=== PATIENT | female | born 1940 | race Caucasian/White ===

== ENCOUNTER 2019-02-19 13:50 | Inpatient (IN) | payer MEDICARE, OTHER ==
[~2019-02-19] VITALS: Ht 157.5 cm; Wt 79.1 kg
[2019-02-19 15:33] LABS: BASO % 0.3 % (0.0-1.0); EOS # 0.2 10^3/uL (0.0-0.5); HEMATOCRIT 33.5 % (36.0-47.0); HEMOGLOBIN 10.7 g/dl (12.0-15.5); LYMPH # 1.3 10^3/uL (1.5-5.0); LYMPH % 17.7 % (24.0-44.0); MEAN CORPUSCULAR HEMOGLOBIN 30.9 pg (27.0-33.0); MEAN CORPUSCULAR HGB CONC 31.9 g/dl (32.0-36.5); MEAN CORPUSCULAR VOLUME 96.8 fl (80.0-96.0); MONO # 0.6 10^3/uL (0.0-0.8); MONO % 7.3 % (0.0-5.0); NEUTROPHILS # 5.4 10^3/uL (1.5-8.5); NEUTROPHILS % 72.3 % (36.0-66.0); PLATELET COUNT, AUTOMATED 257 10^3/uL (150-450); RED BLOOD COUNT 3.46 10^6/uL (4.00-5.40); WHITE BLOOD COUNT 7.5 10^3/uL (4.0-10.0)
[2019-02-19 15:49] LABS: BLOOD UREA NITROGEN 43 MG/DL (7-18); C REACTIVE PROTEIN QUANTITATIV 2.57 MG/DL (0.00-0.30); CALCIUM LEVEL 9.1 MG/DL (8.8-10.2); CARBON DIOXIDE LEVEL 26 MEQ/L (21-32); CHLORIDE LEVEL 105 MEQ/L (98-107); CREATININE FOR GFR 1.93 MG/DL (0.55-1.30); GLOMERULAR FILTRATION RATE 26.6 (>32); GLUCOSE, FASTING 309 MG/DL (70-100); POTASSIUM SERUM 4.3 MEQ/L (3.5-5.1); SODIUM LEVEL 140 MEQ/L (136-145)
[2019-02-19 15:53] LABS: ERYTHROCYTE SEDIMENTATION RATE 71 mm/hr (0-30)
[2019-02-19 16:49] LABS: CPK CREATINE PHOSPHOKINASE 141 U/L (26-192); MB/CK RELATIVE INDEX 1.42 (< OR =4); NT-PRO BNP 456 PG/ML (<450); TROPONIN I < 0.02 NG/ML (< 0.10)
--- NOTE | 2019-02-19 17:00 | REP ---
Duplex extremity venous ultrasound: Right lower extremity rupali History: Right lower extremity edema. Rule out DVT. Findings: The deep veins are anechoic and fully compressible from the groin to the popliteal fossa in the right lower extremity. Color flow imaging is homogeneous. Spectral Doppler interrogation demonstrates intact respiratory variation in flow and normal manual augmentation of flow. There is no evidence of deep vein thrombosis. Impression: Negative right lower extremity duplex venous ultrasound. No evidence of deep vein thrombosis. Electronically Signed by Francisco Torres MD 02/19/2019 04:52 P
[2019-02-19] MEDS ORDERED: OCUVTAB4 PO (17:33)
[2019-02-19] MEDS ORDERED: ATEN50TA2 PO (17:33)
[2019-02-19] MEDS ORDERED: AMLO10TA5 PO (17:33)
[2019-02-19] MEDS ORDERED: ATOR80TA59 PO (17:33)
[2019-02-19] MEDS ORDERED: NOVOINJ3 SQ (17:33)
[2019-02-19] MEDS ORDERED: TRES1INJ2 SQ (17:33)
[2019-02-19] MEDS ORDERED: ACET-907 PO (17:33)
[2019-02-19] MEDS ORDERED: OMEP1CAP73 PO (17:33)
[2019-02-19] MEDS ORDERED: AUGMENTIN 875 MG TAB PO ONE ×2 (17:45→20:00)
--- NOTE | 2019-02-19 19:22 | HPEPDOC ---
[facility] Medical History & Physical Date of Admission Feb 19, 2019 Date of Service: Feb 19, 2019 Primary Care Physician: Scott Ramesh Attending Physician: RYAN FELIZ MD History and Physical TIME OF SERVICE: 7:20 PM CHIEF COMPLAINT: Weakness HISTORY OF PRESENT ILLNESS: The majority of the history is obtained from the patient's daughter, the patient didn't have much to contribute to the HPI. This is an 78-year-old female who presents with complaints of weakness for 3 days after she was bitten by a cat on her right lower forearm. As a result of the weakness her daughter has had to assist her mother with walking and dressing. The patient denies having fevers, chills, nausea, vomiting, or abdominal pain. The patient lives on her own in [place], and at baseline walks with a walker. The patient's daughter has also noticed that her mother's speech is slower & it apepears to take her more effort for her to speak. The patient's daughter is also concerned that her mother developed blisters on her right foot after being locked outside on with only socks on her feet. The patient doesn't take her medications consistently. REVIEW OF SYSTEMS: 12 point review of systems negative except as listed in HPI PAST MEDICAL/ SURGICAL HISTORY: CVA with residual memory deficit ? IDDM, Dyslipidemia. Chronic hypertension PAD Status post right leg vascular procedure, possibly femoropopliteal bypass Bilateral cataract surgery. Status post cholecystectomy SOCIAL HISTORY: She doesn't smoke FAMILY HISTORY: Denied knowledge of family history of diabetes, or any artery disease, or lung problems ALLERGIES: Please see below. HOME MEDICATIONS: Please see below. PHYSICAL EXAMINATION: VITAL SIGNS: Please see below. GEN: well nourished / well developed/ NAD INTEGUMENT: not flushed/ appears pale / she has read small round lesions on the right lower forearm that are not draining pus / xerosis affecting skin on right foot, there is a dark red flat lesion on the forefoot HEENT: normocephalic / atraumatic / lips acyanotic /mucus membranes moist and pink CVS: RRR/ NMRG/ radial and dorsalis pedis pulses difficult to palpate / right lower extremity more swollen than left LUNGS: able to speak full sentences without stopping to take a breath / no cou ghing / lungs are clear to auscultation bilaterally on room air ABDOMEN: tympanic on percussion, soft & not tender with palpation MSK/EXTREMITIES: range of motion intact in all 4 extremities NEURO: CN 2-12 are grossly intact / speech is not dysarthric / strength 5 out of 5 in all extremities except for the right hip flexor strength is +4/5 PSYCH: alert and oriented to person place / able to understand and follow all commands LABORATORY DATA: See below. IMAGING: Right lower extremity duplex " Impression: Negative right lower extremity duplex venous ultrasound. No evidence of deep vein thrombosis." Chest x-ray " Impression: Mild cardiomegaly. Otherwise no acute disease." CT head " IMPRESSION: 1. There is parenchymal volume loss. White matter changes are demonstrated in the subcortical, centrum semiovale and periventricular white matter consistent with age related small vessel white matter angiopathic gliosis. 2. The degree of ventricular dilatation is normal for age and/or degree of atrophy present. 3. No acute findings. MICROBIOLOGY: Please see below. ASSESSMENT: Ms. Franks is an 78-year-old with past medical history of IDDM, Chronic hypertension,dyslipidemia, CVA, impaired memory, and PAD who will be admitted for evaluation of weakness & treatment of a right lower arm cat bite. PLAN: 1. Weakness It is unclear what the cause of her acute weakness is. At her baseline she can walk with a walker but more recently she is having difficulty using the walker. CT of the head is unremarkable Plan: PT eval/fall precautions / if her weakness doesn't improve the day time t eam may consider MRI & PFS consult for placement 2.Expressive Aphasia ? According to the patient's daughter. She is also having difficulty speaking. Plan: SPL eval to test her speech & determine if she needs out pt speech therapy 3. Cat bite at right lower arm She does not have SIRS criteria. Arm is not excessively swollen Plan: Admit to medical floor/monitor vitals/oral Augmentin 4. Hx of CVA with residual memory deficit ? / Dyslipidemia According to the patient's daughter. The patient lives on her own and [place], She provided a vague answer when I asked her if the patient is going to move in with her, whether there will require home RN and home health aide or or whether her mother will require placement Plan: Continue atorvastatin / the daytime team can follow-up with the patient and her daughter during the day prior to placing a PFS consult 5. Elevated BNP Possibly due to CHF ? Clinically, the patient is euvolemic She also has congestion on the chest x-ray. The troponin is unremarkable. EKG shows normal sinus rhythm with a heart rate of 71 Plan: Monitor intake and output along with daily weights/Follow-up Echo 6. GRACE versus CKD It's unclear what her baseline renal function is. Plan: f/u ulytes for FENa or FEUrea, renal US / will not give IV fluids for now until we are sure it's GRACE because she also has elevated BNP and congestion on chest x-ray 7. Uncontrolled IDDM Plan: diabetic diet / f/u accuchecks & A1C / hypoglycemia protocol / sliding scale insulin / aspart 4 units before meals, at bedtime with Tresiba 16 units daily 8. Right lower extremity blisters. She is diabetic and has not been taking her insulin consistently Plan: Podiatry consult 9. Macrocytic anemia Plan: Follow-up reticulocyte count, iron studies, B12 and folate 10. Chronic hypertension Plan: Continue amlodipine & atenolol 11. PAD Status post right leg vascular procedure, possibly femoropopliteal bypass Plan: Continue with statin/ she is not on a blood thinner or cilostazol 12. Obesity Her BMI is 30.2. This complicates care. She has coexisting diabetes Plan: can f/u w PCP for [employer] questionnaire & photo graphics librarian consult DVT prophylaxis with Lovenox. Discharge disposition pending family's decision, the patient will need more than 2 midnight stay Vital Signs Vital Signs Date Time Temp Pulse Resp B/P (MAP) Pulse Ox O2 Delivery O2 Flow Rate FiO2 02/19/19 17:35 71 142/84 (103) 74 139/67 (91) 80 169/72 (104) 02/19/19 13:51 96.7 18 97 Room Air Laboratory Data Labs 24H Laboratory Tests 2 02/19/19 15:18: Immature Granulocyte % (Auto) 0.4, Neutrophils (%) (Auto) 72.3H, Lymphocytes (%) (Auto) 17.7L, Monocytes (%) (Auto) 7.3H, Eosinophils (%) (Auto) 2.0, Basophils (%) (Auto) 0.3, Neutrophils # (Auto) 5.4, Lymphocytes # (Auto) 1.3L, Monocytes # (Auto) 0.6, Eosinophils # (Auto) 0.2, Basophils # (Auto) 0.0, Nucleated Red Blood Cells % (auto) 0.0, Erythrocyte Sedimentation Rate 71H, Anion Gap 9, Glomerular Filtration Rate 26.6L, Lactic Acid Level 1.5, Calcium Level 9.1, Total Creatine Kinase 141, Creatine Kinase MB 2.0, Creatine Kinase MB Relative Index 1.42, Troponin I < 0.02, C-Reactive Protein, Quantitative 2.57H, NT-Pro-B- Type Natriuretic Peptide 456H, Thyroid Stimulating Hormone (TSH) 2.170 02/19/19 17:34: Urine Color YELLOW, Urine Appearance HAZY, Urine pH 5.0, Urine Specific [place] 1.023, Urine Protein 1+H, Urine Glucose (UA) NEGATIVE, Urine Ketones NEGATIVE, Urine Blood NEGATIVE, Urine Nitrite NEGATIVE, Urine Bilirubin NEGATIVE, Urine Urobilinogen 0.2, Urine Leukocyte Esterase TRACEH, Urine WBC (Auto) 8H, Urine RBC (Auto) 2, Urine Hyaline Casts (Auto) 4, Urine Bacteria (Auto) 1+H, Urine Squamous Epithelial Cells 3, Urine Transitional Epithelial Cells <1, Urine Mucus (Auto) SMALL, Urine Sperm (Auto) CBC/BMP Laboratory Tests 02/19/19 15:18 Microbiology Microbiology 02/19/19 Blood Culture, Received Pending 02/19/19 Urine Culture, Received Pending 02/19/19 Blood Culture, Received Pending Home Medications Scheduled Amlodipine Besylate (Amlodipine Besylate) 10 Mg Tablet, 10 MG PO DAILY PATIENT HAS NOT BEEN TAKING Atenolol (Atenolol) 50 Mg Tablet, 25 MG PO DAILY PATIENT HAS NOT BEEN TAKING Atorvastatin Calcium (Atorvastatin Calcium) 80 Mg Tablet, 40 MG PO DAILY PATIENT HAS NOT BEEN TAKING Insulin Aspart (Novolog Flexpen) 100 Unit/1 Ml Insuln.pen, 4 UNITS SQ ACHS Insulin Degludec (Tresiba Flextouch U-100) 100 Unit/1 Ml Insuln.pen, 16 UNITS SQ DAILY Omeprazole (Omeprazole) 20 Mg Capsule.dr, 20 MG PO DAILY Vit A/Vit C/Vit E/Zinc/Copper (Preservision Areds Tablet) 1 Each Tablet, 1 TAB PO BID Scheduled PRN Acetaminophen (Tylenol) 325 Mg Tablet, 650 MG PO BID PRN for PAIN Allergies Coded Allergies: terfenadine (Verified Allergy, Unknown, 02/19/19) A-FIB/CHADSVASC A-FIB History Current/History of A-Fib/PAF?: No Current PO Anticoag Therapy: No RYAN FELIZ MD Feb 19, 2019 19:22
[2019-02-19] MEDS ORDERED: HumuLIN R (REGULAR) INSULIN (NovoLIN R) **100U/ML** PER UNIT IV ONE (19:30)
--- NOTE | 2019-02-19 19:43 | REP ---
Chest x-ray: Two views. History: Lower extremity edema. No comparison study. Findings: The lungs are well inflated and free of infiltrate. Pleural angles are sharp. The heart is mildly enlarged. Pulmonary vasculature is not increased. No infiltrate is seen. The aorta is tortuous and slightly calcific. There is an old healed rib fracture on the right and there are degenerative changes in the thoracic spine. There are surgical clips in the upper abdomen. Impression: Mild cardiomegaly. Otherwise no acute disease. Electronically Signed by Francisco Torres MD 02/19/2019 07:36 P
[2019-02-19] MEDS ORDERED: MOM 30ML SUSPENSION UDC PO PRN (19:45)
[2019-02-19] MEDS ORDERED: MAALOX 30 ML SUSP *UDC PO PRN (19:45)
[2019-02-19] MEDS ORDERED: DEXTROSE 50% 50 ML SYRINGE IV PRN (19:45)
[2019-02-19] MEDS ORDERED: GLUCOSE 4 GM CHEW TABLET PO PRN (19:45)
[2019-02-19] MEDS ORDERED: GLUCAGON FOR INJ 1 MG VIAL (J1610) SC PRN (19:45)
--- NOTE | 2019-02-19 20:19 | REPVR ---
PROCEDURE INFORMATION: Exam: CT Head Without Contrast Exam date and time: 02/19/2019 7:44 PM Age: 78 years old Clinical history: Weakness, extremity; Right; Additional info: Hospitalist request TECHNIQUE: Imaging protocol: Computed tomography of the head without contrast. Radiation optimization: All CT scans at this facility use at least one of these dose optimization techniques: automated exposure control; mA and/or kV adjustment per patient size (includes targeted exams where dose is matched to clinical indication); or iterative reconstruction. COMPARISON: No relevant prior studies available. FINDINGS: Brain: There is parenchymal volume loss. White matter changes are demonstrated in the subcortical, centrum semiovale and periventricular white matter consistent with age related small vessel white matter angiopathic gliosis. Cerebellar atrophy. Ventricles: The degree of ventricular dilatation is normal for age and/or degree of atrophy present. Bones/joints: Unremarkable. No acute fracture. Sinuses: Visualized sinuses are unremarkable. No fluid levels. Mastoid air cells: Visualized mastoid air cells are well aerated. Soft tissues: Unremarkable. IMPRESSION: 1. There is parenchymal volume loss. White matter changes are demonstrated in the subcortical, centrum semiovale and periventricular white matter consistent with age related small vessel white matter angiopathic gliosis. 2. The degree of ventricular dilatation is normal for age and/or degree of atrophy present. 3. No acute findings. Electronically signed by: Khoa Mathews On 02/19/2019 20:18:50 PM
[2019-02-19] MEDS: HumaLOG INSULIN (NovoLOG) PER UNIT SC SCH (21:00)
--- NOTE | 2019-02-19 21:45 | REPVR ---
PROCEDURE INFORMATION: Exam: US Retroperitoneal Limited, Kidneys Exam date and time: 02/19/2019 8:50 PM Age: 78 years old Clinical history: Abnormal findings; Abnormal lab test; Abnormal kidney function lab tests; Additional info: Elian vs ckd TECHNIQUE: Imaging protocol: Real-time ultrasound of the retroperitoneum with image documentation. Examination was focused on the kidneys. COMPARISON: No relevant prior studies available. FINDINGS: Right kidney measures 9.2 cm in length. Left kidney measures 11 cm in length. Renal parenchymal echotexture and cortical thickness are normal. No solid renal mass, cyst or hydronephrosis. No shadowing, echogenic foci suggestive of stones. IMPRESSION: Unremarkable ultrasound of the kidneys Electronically signed by: Eyal Acevedo On 02/19/2019 21:44:54 PM
--- NOTE | 2019-02-19 22:16 | ECGEPIP ---
[facility] - ED Test Date: 2019-02-19 Pat Name: BART RECINOS Department: Room: - Gender: Female Binding Stitcher: : 1940 Requested By: GINETTE Smith PA-C Order Number: [id number] Reading MD: Scott Montaño Measurements Intervals [place] Rate: 71 P: 60 TN: 183 QRS: -4 QRSD: 93 T: 75 QT: 394 QTc: 431 Interpretive Statements SINUS RHYTHM Left ventricular hypertrophy by aVL criteria Nonspecific T wave abnormality Comparison tracing not on file Electronically Signed on 02-19-2019 22:16:20 EST by Scott Montaño
[2019-02-19 22:50] VITALS: BP 161/73
[2019-02-19] MEDS: DOCUSATE SODIUM 100 MG CAP PO SCH (23:18)
[2019-02-20 05:17] VITALS: BP 126/66
[2019-02-20 06:56] LABS: HEMATOCRIT 29.2 % (36.0-47.0); HEMOGLOBIN 9.5 g/dl (12.0-15.5); MEAN CORPUSCULAR HEMOGLOBIN 31.1 pg (27.0-33.0); MEAN CORPUSCULAR HGB CONC 32.5 g/dl (32.0-36.5); MEAN CORPUSCULAR VOLUME 95.7 fl (80.0-96.0); PLATELET COUNT, AUTOMATED 246 10^3/uL (150-450); RED BLOOD COUNT 3.05 10^6/uL (4.00-5.40); WHITE BLOOD COUNT 6.6 10^3/uL (4.0-10.0)
[2019-02-20 07:25] LABS: CALCIUM LEVEL 9.1 MG/DL (8.8-10.2); CREATININE FOR GFR 1.34 MG/DL (0.55-1.30); GLOMERULAR FILTRATION RATE 40.5 (>32); POTASSIUM SERUM 3.7 MEQ/L (3.5-5.1)
[2019-02-20] MEDS: HumaLOG INSULIN (NovoLOG) PER UNIT SQ SCH ×4 (07:30→20:43)
[2019-02-20] MEDS: AUGMENTIN 875 MG TAB PO SCH ×2 (08:39→20:42)
[2019-02-20] MEDS: ATORVASTATIN 20 MG TAB PO SCH (08:39)
[2019-02-20] MEDS: OCUVITE 1 TAB PO SCH ×2 (08:39→20:42)
[2019-02-20] MEDS: OMEPRAZOLE 20 MG CAP PO SCH (08:40)
[2019-02-20] MEDS: ACETAMINOPHEN TAB 650MG DOSE (2X325MG) PO PRN (08:40)
[2019-02-20] MEDS: atenoloL 25 MG TAB PO SCH (08:40)
[2019-02-20] MEDS: amLODIPine 10 MG TAB PO SCH (08:41)
[2019-02-20] MEDS: DOCUSATE SODIUM 100 MG CAP PO SCH ×2 (08:41→20:42)
[2019-02-20] MEDS: ENOXAPARIN 30 MG/0.3 ML SYR (J1650) SC SCH (08:43)
[2019-02-20] MEDS: HumaLOG INSULIN (NovoLOG) PER UNIT SC SCH ×4 (08:44→20:43)
[2019-02-20] MEDS ORDERED: ENTER DRUG NAME HERE (PATIENT'S OWN MED) SC SCH (09:00)
[2019-02-20] MEDS ORDERED: ENOXAPARIN 40 MG/0.4 ML SYRINGE (J1650) SC SCH (09:00)
[2019-02-20] MEDS ORDERED: PREVNAR 13 VACCINE SYRINGE (CPT CODE:90670) IM ONE (09:00)
--- NOTE | 2019-02-20 10:59 | CR ---
DATE OF CONSULTATION: 02/19/2019 REASON FOR CONSULTATION: Right foot nonhealing blister. Angelika Franks is a pleasant 78-year-old female who is admitted to [facility] yesterday due to a cat bite resulting in weakness. She notes that there is a sore on her right foot which has been present approximately four weeks. She states she was outside in her socks on and developed a blister on her foot. She states it has not seemed to be healing appropriately. She states that it is not painful. Denies other complaints in her feet. PAST MEDICAL HISTORY: Significant for cerebrovascular accident (CVA), some memory deficiency, insulin dependent diabetes, dyslipidemia, chronic hypertension, peripheral arterial disease, status post right vascular procedure. PAST SURGICAL HISTORY: History of right lower extremity bypass, cataract surgery and cholecystectomy. ALLERGIES: TERFENADINE. FAMILY HISTORY: Noncontributory. SOCIAL HISTORY: Nonsmoker. VITAL SIGNS: Are reviewed. She has been afebrile since admission. White blood cell count is 6.6 today, erythrocyte sedimentation rate was 71. Vascular ultrasound was negative for deep venous thrombosis (DVT). Lower extremity examination: Pedal pulses are palpable. There is a small blistered area on the dorsal aspect of the right hallux. With lancing, there is no fluid underneath, no purulence, no erythema surrounding, no pain to palpation. ASSESSMENT: 78-year-old diabetic female with right foot blister/diabetic wound. PLAN: There is epidermal skin underneath the blistered area. There is no signs of infection to this site. For now will just keep site moisturized. She is likely to heal this slowly as she is elderly, diabetic and has history of poor blood flow on this side. There is no need for debridement or further intervention at this time. Apply Lac-Hydrin to foot daily. Thank you for consultation.
[2019-02-20 14:00] VITALS: BP 124/100
--- NOTE | 2019-02-20 14:53 | IPNPDOC ---
Date Seen The patient was seen on 02/20/19. Progress Note SUBJECTIVE: Patient reports overall weakness but denies any significant discomfort. Afebrile overnight. WBC 6.6 OBJECTIVE PHYSICAL EXAMINATION: VITAL SIGNS: Please see below. General: No acute distress, Alert, weak Eyes: Normal sclera, EOMI HENT: Atraumatic Cardiovascular: Normal rate, normal rhythm. Pulmonary: Clear to auscultation b/l, no wheezing GI: Soft, nontender, nondistended Skin: Warm and dry. Several small round bite patel on R. forearm with no significant erythema, overlying scab. Neuro: CN grossly intact. No focal deficits. Generalized weakness Psych: oriented x 3 LABORATORY DATA, IMAGING STUDIES, MICROBIOLOGY: Please see below. DVT prophylaxis ordered?: Lovenox ASSESSMENT AND PLAN: 1. Weakness - Concern for unable to ambulate and take care of herself at home. - Will need aggressive PT eval and treatment. - May need Rehab follow by placement? SW consultation. - CT head unremarkable. No focal deficits that is suggestive of CVA/TIA at this time. - Speech eval. 2. Cat bite - R. arm with small wound that is scabbed over. No significant erythema. - c/w Augmentin. 3. hx CVA with unknown deficits, possibly memory? - c/w home meds. - Will likely need placement. 4. GRACE - Unknown baseline. Improving. - Monitor BMP and treat if needed. 5. Elevated BNP - Euvolemic on exam. - f/u ECHO and decide on treatment if needed. 6. IDDM - c/w Tresiba and ISS with ACHS fingerstick. 7. RLE blisters - examined by Podiatry. Keep moist, supportive care, no evidence of infection. 9. Macrocytic anemia 10. HTN - c/w Norvasc and atenolol 11. PAD - s/p RLE procedure. - c/w statin. 12. Obesity - BMI 30.2 complicating nursing care. DVT ppx: Lovenox Dispo: Rehab vs. placement. DISPOSITION: Rehab vs placement. VS, I&O, 24H, Fishbone Vital Signs/I&O Vital Signs Date Time Temp Pulse Resp B/P (MAP) Pulse Ox O2 Delivery O2 Flow Rate FiO2 02/20/19 08:41 73 126/66 02/20/19 05:17 98.5 16 95 Room Air I&O- Last 24 Hours up to 6 AM 02/20/19 06:00 Intake Total 400 ml Output Total 200 ml Balance 200 ml Laboratory Data 24H LABS Laboratory Tests 2 02/19/19 15:14: Bedside Glucose (Misc Panel) 319H 02/19/19 15:18: Immature Granulocyte % (Auto) 0.4, Neutrophils (%) (Auto) 72.3H, Lymphocytes (%) (Auto) 17.7L, Monocytes (%) (Auto) 7.3H, Eosinophils (%) (Auto) 2.0, Basophils (%) (Auto) 0.3, Neutrophils # (Auto) 5.4, Lymphocytes # (Auto) 1.3L, Monocytes # (Auto) 0.6, Eosinophils # (Auto) 0.2, Basophils # (Auto) 0.0, Nucleated Red Blood Cells % (auto) 0.0, Erythrocyte Sedimentation Rate 71H, Anion Gap 9, Glomerular Filtration Rate 26.6L, Lactic Acid Level 1.5, Calcium Level 9.1, Total Creatine Kinase 141, Creatine Kinase MB 2.0, Creatine Kinase MB Relative Index 1.42, Troponin I < 0.02, C-Reactive Protein, Quantitative 2.57H, MP-Ibr-V-Type Natriuretic Peptide 456H, Thyroid Stimulating Hormone (TSH) 2.170 02/19/19 17:34: Urine Color YELLOW, Urine Appearance HAZY, Urine pH 5.0, Urine Specific [place] 1.023, Urine Protein 1+H, Urine Glucose (UA) NEGATIVE, Urine Ketones NEGATIVE, Urine Blood NEGATIVE, Urine Nitrite NEGATIVE, Urine Bilirubin NEGATIVE, Urine Urobilinogen 0.2, Urine Leukocyte Esterase TRACEH, Urine WBC (Auto) 8H, Urine R BC (Auto) 2, Urine Hyaline Casts (Auto) 4, Urine Bacteria (Auto) 1+H, Urine Squamous Epithelial Cells 3, Urine Transitional Epithelial Cells <1, Urine Mucus (Auto) SMALL, Urine Sperm (Auto) 02/19/19 20:05: Estimated Mean Plasma Glucose 154H, Hemoglobin A1c 7.0, Iron Level 26L, Total Iron Binding Capacity 259, Transferrin % Saturation 10.0L, Ferritin 112 02/19/19 20:06: Bedside Glucose (Misc Panel) 242H 02/19/19 22:53: Bedside Glucose (Misc Panel) 229H 02/20/19 06:20: Nucleated Red Blood Cells % (auto) 0.0, Anion Gap 8, Glomerular Filtration Rate 40.5, Calcium Level 9.1, Magnesium Level 2.0 02/20/19 11:32: Bedside Glucose (Misc Panel) 215H CBC/BMP Laboratory Tests 02/19/19 15:18 02/20/19 06:20 Microbiology Microbiology 02/19/19 Blood Culture, Received Pending 02/19/19 Urine Culture, Received Pending 02/19/19 Blood Culture, Received Pending NIMA PLEITEZ MD Feb 20, 2019 14:53
[2019-02-20] MEDS: LACTIC ACID 12% LOTION 225 GM BTL TOP SCH (18:07)
[2019-02-20 20:03] VITALS: BP 141/61
[2019-02-21] MEDS: ACETAMINOPHEN TAB 650MG DOSE (2X325MG) PO PRN ×3 (05:18→15:20)
[2019-02-21 05:45] VITALS: BP 123/63
[2019-02-21] MEDS: ENOXAPARIN 30 MG/0.3 ML SYR (J1650) SC SCH (09:17)
[2019-02-21] MEDS: ATORVASTATIN 20 MG TAB PO SCH (09:18)
[2019-02-21] MEDS: OMEPRAZOLE 20 MG CAP PO SCH (09:18)
[2019-02-21] MEDS: AUGMENTIN 875 MG TAB PO SCH ×2 (09:18→21:40)
[2019-02-21] MEDS: DOCUSATE SODIUM 100 MG CAP PO SCH ×2 (09:18→21:41)
[2019-02-21] MEDS: amLODIPine 10 MG TAB PO SCH (09:18)
[2019-02-21] MEDS: OCUVITE 1 TAB PO SCH ×2 (09:18→21:41)
[2019-02-21] MEDS: HumaLOG INSULIN (NovoLOG) PER UNIT SC SCH ×4 (09:19→21:00)
[2019-02-21] MEDS: atenoloL 25 MG TAB PO SCH (09:19)
[2019-02-21] MEDS: LACTIC ACID 12% LOTION 225 GM BTL TOP SCH (09:20)
[2019-02-21] MEDS: HumaLOG INSULIN (NovoLOG) PER UNIT SQ SCH ×4 (09:20→21:41)
--- NOTE | 2019-02-21 09:39 | IPNPDOC ---
Text Note Date of Service The patient was seen on 02/21/19. NOTE SUBJECTIVE: Patient seen and examined at bedside. No acute overnight events reported. No new medical complaints. OBJECTIVE: VITAL SIGNS: Please see below. General: NAD, lying comfortably in bed HEENT: NC/AT Cardiovascular: +S1S2, RRR Pulmonary: Clear to auscultation b/l, no wheezing GI: Soft, nontender, nondistended, +BS Skin: Warm and dry. Several small round bite patel on R. forearm with no significant erythema, overlying scab. Ext: trace edema Neuro: CN grossly intact. No focal deficits. Generalized weakness Psych: oriented x 3 LABORATORY DATA, IMAGING STUDIES, MICROBIOLOGY: Please see below. DVT prophylaxis ordered?: Lovenox ASSESSMENT AND PLAN: 1. Weakness - follow as per PT/OT - May need Rehab follow by placement? SW consultation. - CT head unremarkable. No focal deficits that is suggestive of CVA/TIA at this time. 2. Cat bite - R. arm with small wound that is scabbed over. No significant erythema. - c/w Augmentin. 3. hx CVA with unknown deficits, possibly memory? - c/w home meds. 4. GRACE - improving - Unknown baseline - Monitor BMP 5. Elevated BNP - Euvolemic on exam. - f/u ECHO and decide on treatment if needed. 6. IDDM - c/w Tresiba and ISS with ACHS fingerstick. 7. RLE blisters - examined by Podiatry. Keep moist, supportive care, no evidence of infection. 9. Macrocytic anemia 10. HTN - c/w Norvasc and atenolol 11. PAD - s/p RLE procedure. - c/w statin. 12. Obesity - BMI 30.2 complicating medical care DVT ppx: Lovenox Dispo: Rehab vs. placement. DISPOSITION: pending PT, placement VS,Fishbone, I+O VS, Fishbone, I+O Vital Signs Date Time Temp Pulse Resp B/P (MAP) Pulse Ox O2 Delivery O2 Flow Rate FiO2 02/21/19 09:19 61 123/63 02/21/19 05:45 97.8 18 97 Room Air I&O- Last 24 Hours up to 6 AM 02/21/19 06:00 Intake Total 1540 ml Output Total 0 ml Balance 1540 ml LALDIN,JUAN S. MD Feb 21, 2019 09:39
[2019-02-21 10:54] LABS: FOLATE 6.7 NG/ML (>5.4)
[2019-02-21 14:00] VITALS: BP 120/60
[2019-02-21 22:00] VITALS: BP 137/64
--- NOTE | 2019-02-21 23:24 | ECHO ---
DATE OF PROCEDURE: 02/21/2019 Date of : 1940 Age: 78 Gender: Female Height: 62 inches Weight: 162 pounds Body surface area: 1.75 meters squared Inpatient: Venice Fierrott, room 5151 REFERRING PHYSICIAN: Dr. Berta Decker INDICATION: Dyspnea. MEASUREMENTS: 2D Measurements: RV: 3.8 cm LV: 4.6 cm Septum: 1.0 cm Posterior wall: 1.1 cm Aortic root: 3.3 cm LA: 3.9 cm LVEF: 75% Doppler Measurements: AV: 1.7 meters per second LVOT: 1.0 meters per second LVOT diameter: 2.0 cm MV-E: 74, A: 99, EA ratio: 0.8 Early mitral deceleration time: 239 milliseconds E prime medial: 4.6, A prime medial: 5.8, E prime lateral: 6.4 Average E/E prime ratio: 13.5/pulmonary capillary wedge pressure: 18.6 mmHg PV: 0.85 meters per second Pulmonary artery acceleration time: 106 milliseconds PASP: 34 mmHg IVC: 1.4 cm COMMENTS: Normal sinus rhythm without intraventricular conduction disturbance. M-mode and two-dimensional echocardiography was performed with pulsed, continuous wave, color flow and tissue Doppler studies. Normal left ventricular size, wall thickness and hyperkinetic wall motion. Borderline left atrial enlargement with Doppler evidence of grade 1 left ventricular (LV) diastolic dysfunction and mildly elevated estimated mean left atrial pressure. Normal right heart chamber sizes and wall motion with Doppler evidence of mild pulmonary hypertension. Normal inferior vena cava (IVC) size against an elevated central venous pressure. Mild aortic valvular sclerosis without stenosis and only trace insufficiency. Normal aortic dimensions. Mild mitral annular calcification with adequate leaflet excursion and no posterior systolic buckling, only trace mitral insufficiency. Normal appearing and functioning tricuspid valve. No apparent intracardiac mass or pericardial effusion.
[2019-02-22] MEDS: ACETAMINOPHEN TAB 650MG DOSE (2X325MG) PO PRN ×3 (05:12→21:21)
[2019-02-22 06:00] VITALS: BP 131/53
[2019-02-22 07:23] LABS: HEMATOCRIT 28.9 % (36.0-47.0); HEMOGLOBIN 9.5 g/dl (12.0-15.5); MEAN CORPUSCULAR HEMOGLOBIN 31.4 pg (27.0-33.0); MEAN CORPUSCULAR HGB CONC 32.9 g/dl (32.0-36.5); MEAN CORPUSCULAR VOLUME 95.4 fl (80.0-96.0); PLATELET COUNT, AUTOMATED 218 10^3/uL (150-450); RED BLOOD COUNT 3.03 10^6/uL (4.00-5.40); WHITE BLOOD COUNT 8.4 10^3/uL (4.0-10.0)
[2019-02-22] MEDS: HumaLOG INSULIN (NovoLOG) PER UNIT SC SCH ×4 (07:30→21:00)
[2019-02-22] MEDS: amLODIPine 10 MG TAB PO SCH (09:09)
[2019-02-22] MEDS: HumaLOG INSULIN (NovoLOG) PER UNIT SQ SCH ×2 (09:09→11:57)
[2019-02-22] MEDS: OMEPRAZOLE 20 MG CAP PO SCH (09:09)
[2019-02-22] MEDS: ATORVASTATIN 20 MG TAB PO SCH (09:10)
[2019-02-22] MEDS: atenoloL 25 MG TAB PO SCH (09:10)
[2019-02-22] MEDS: ENOXAPARIN 30 MG/0.3 ML SYR (J1650) SC SCH (09:10)
[2019-02-22] MEDS: DOCUSATE SODIUM 100 MG CAP PO SCH ×2 (09:10→21:21)
[2019-02-22] MEDS: OCUVITE 1 TAB PO SCH ×2 (09:10→21:21)
[2019-02-22] MEDS: AUGMENTIN 875 MG TAB PO SCH ×2 (09:10→21:25)
[2019-02-22] MEDS: LACTIC ACID 12% LOTION 225 GM BTL TOP SCH (09:11)
[2019-02-22 13:41] VITALS: BP 120/50
[2019-02-22 20:24] VITALS: BP 122/50
[2019-02-23 05:48] VITALS: BP 138/56
[2019-02-23 07:20] LABS: BASO % 0.3 % (0.0-1.0); EOS # 0.2 10^3/uL (0.0-0.5); EOS % 2.7 % (0.0-3.0); HEMATOCRIT 29.4 % (36.0-47.0); HEMOGLOBIN 9.6 g/dl (12.0-15.5); LYMPH # 1.5 10^3/uL (1.5-5.0); LYMPH % 21.2 % (24.0-44.0); MEAN CORPUSCULAR HGB CONC 32.7 g/dl (32.0-36.5); MEAN CORPUSCULAR VOLUME 94.8 fl (80.0-96.0); MONO # 0.5 10^3/uL (0.0-0.8); MONO % 7.6 % (0.0-5.0); NEUTROPHILS # 4.8 10^3/uL (1.5-8.5); NEUTROPHILS % 67.6 % (36.0-66.0); PLATELET COUNT, AUTOMATED 205 10^3/uL (150-450); WHITE BLOOD COUNT 7.1 10^3/uL (4.0-10.0)
[2019-02-23] MEDS: HumaLOG INSULIN (NovoLOG) PER UNIT SC SCH (07:30)
[2019-02-23 07:46] LABS: CALCIUM LEVEL 8.9 MG/DL (8.8-10.2); CREATININE FOR GFR 1.22 MG/DL (0.55-1.30); GLOMERULAR FILTRATION RATE 45.1 (>32); POTASSIUM SERUM 3.6 MEQ/L (3.5-5.1)
--- NOTE | 2019-02-23 08:45 | IPNPDOC ---
Text Note Date of Service The patient was seen on 02/22/19. NOTE SUBJECTIVE: Patient seen and examined at bedside. No acute overnight events reported. No new medical complaints. OBJECTIVE: VITAL SIGNS: Please see below. General: NAD, lying comfortably in bed HEENT: NC/AT Cardiovascular: +S1S2, RRR Pulmonary: Clear to auscultation b/l, no wheezing GI: Soft, nontender, nondistended, +BS Skin: Warm and dry. Several small round bite patel on R. forearm with no significant erythema, overlying scab. Ext: trace edema Neuro: CN grossly intact. No focal deficits. Generalized weakness Psych: oriented x 3 LABORATORY DATA, IMAGING STUDIES, MICROBIOLOGY: Please see below. DVT prophylaxis ordered?: Lovenox ASSESSMENT AND PLAN: Weakness generalized deconditioning. follow as per PT/OT recommendations CT head unremarkable. No focal deficits that is suggestive of CVA/TIA at this time. Cat bite R. arm with small wound that is scabbed over. No significant erythema. c/w Augmentin. hx CVA with unknown deficits, possibly memory? c/w home meds. GRACE improved. last creatinine at 1.34 unknown baseline. Will recheck. Elevated BNP Euvolemic on exam. f/u ECHO and decide on treatment if needed. IDDM c/w Lispro ISS with ACHS fingerstick. Tresiba not given in hospital RLE blisters examined by Podiatry. Keep moist, supportive care, no evidence of infection. Macrocytic anemia HTN c/w Norvasc and atenolol Hyperlipidemia continue statin. PAD s/p RLE procedure. c/w statin. Obesity BMI 30.2 complicating medical care DVT ppx: Lovenox Dispo: Rehab vs. placement. DISPOSITION: pending PT clearance. Possible home in 1 to 2 days VS,Fishbone, I+O VS, Fishbone, I+O Laboratory Tests 02/22/19 06:56 Vital Signs Date Time Temp Pulse Resp B/P (MAP) Pulse Ox O2 Delivery O2 Flow Rate FiO2 02/22/19 09:10 81 131/53 02/22/19 06:00 98.0 17 95 Room Air I&O- Last 24 Hours up to 6 AM 02/22/19 06:00 Intake Total 1390 ml Output Total 0 ml Balance 1390 ml GEORGINA SAHA MD Feb 22, 2019 13:24
[2019-02-23] MEDS ORDERED: LACH12LO TOP (08:49)
[2019-02-23] MEDS ORDERED: AMOX875T2 PO (08:49)
[2019-02-23] MEDS: DOCUSATE SODIUM 100 MG CAP PO SCH ×2 (09:00→09:24)
[2019-02-23] MEDS: OCUVITE 1 TAB PO SCH ×2 (09:00→09:24)
[2019-02-23] MEDS: amLODIPine 10 MG TAB PO SCH ×2 (09:00→09:24)
[2019-02-23 09:24] VITALS: BP 138/56
[2019-02-23] MEDS: OMEPRAZOLE 20 MG CAP PO SCH (09:24)
[2019-02-23] MEDS: AUGMENTIN 875 MG TAB PO SCH (09:24)
[2019-02-23] MEDS: ENOXAPARIN 30 MG/0.3 ML SYR (J1650) SC SCH (09:24)
[2019-02-23] MEDS: ATORVASTATIN 20 MG TAB PO SCH (09:24)
[2019-02-23] MEDS: atenoloL 25 MG TAB PO SCH (09:24)
[2019-02-23] MEDS: LACTIC ACID 12% LOTION 225 GM BTL TOP SCH (09:25)
--- NOTE | 2019-02-23 12:26 | DS.PDOC ---
Discharge Summary General Date of Admission Feb 19, 2019 at 19:20 Date of Discharge 02/23/19 Discharge Summary PROCEDURES PERFORMED DURING STAY: [None]. Echo: Normal sinus rhythm without intraventricular conduction disturbance. M-mode and two-dimensional echocardiography was performed with pulsed, continu ous wave, color flow and tissue Doppler studies. Normal left ventricular size, wall thickness and hyperkinetic wall motion. Borderline left atrial enlargement with Doppler evidence of grade 1 left ventricular (LV) diastolic dysfunction and mildly elevated estimated mean left atrial pressure. Normal right heart chamber sizes and wall motion with Doppler evidence of mild pulmonary hypertension. Normal inferior vena cava (IVC) size against an elevated central venous pressure. Mild aortic valvular sclerosis without stenosis and only trace insufficiency. Normal aortic dimensions. Mild mitral annular calcification with adequate leaflet excursion and no posterior systolic buckling, only trace mitral insufficiency. Normal appearing and functioning tricuspid valve DISCHARGE DIAGNOSES: weakness due to generalized deconditioning cat bite in arm Blisters in leg/ diabetic wound. GRACE SECONDARY DIAGNOSIS: CVA with residual memory deficit, IDDM, Dyslipidemia, Hypertension, PAD Status post right leg vascular procedure, possibly femoropopliteal bypass COMPLICATIONS/CHIEF COMPLAINT: Cat Bite;Uncontrolled Dm;Weakness. HISTORY OF PRESENT ILLNESS: See History and physical HOSPITAL COURSE: LABORATORY DATA, IMAGING STUDIES, MICROBIOLOGY: Please see below. DVT prophylaxis ordered?: Lovenox ASSESSMENT AND PLAN: This is an 78-year-old female with PMH of CVA with residual memory deficit, IDDM, Dyslipidemia, Hypertension, PAD Status post right leg vascular procedure, possibly femoropopliteal bypass who presents with complaints of weakness for 3 days after she was bitten by a cat on her right lower forearm. The patient's daughter was also concerned that her mother developed blisters on her right foot after being locked outside on with only socks on her feet. The patient doesn't take her medications consistently. She was admitted for weakness and probable expressive aphasia and concerns for an acute cerebrovascular event. She was also noted to have GRACE Weakness generalized deconditioning. follow as per PT/OT recommendations CT head unremarkable. No focal deficits that is suggestive of acute CVA/TIA at this time. No aphasia noted. Cat bite R. arm with small wound that is scabbed over. No significant erythema. c/w Augmentin. hx CVA with unknown deficits, possibly memory? c/w home meds. GRACE improved. last creatinine at 1.34 unknown baseline. Will recheck. Elevated BNP Euvolemic on exam. Echo with grade 1 diastolic dysfunction, normal EF IDDM continue home meds. RLE blisters examined by Podiatry. Keep moist, supportive care, no evidence of infection. Macrocytic anemia stable follow up PMD. HTN c/w Norvasc and atenolol Hyperlipidemia continue statin. PAD s/p RLE procedure. c/w statin. Obesity BMI 30.2 complicating medical care DISCHARGE MEDICATIONS: Please see below. ALLERGIES: Please see below. PHYSICAL EXAMINATION ON DISCHARGE: VITAL SIGNS: Please see below. General: NAD, lying comfortably in bed HEENT: NC/AT Cardiovascular: +S1S2, RRR Pulmonary: Clear to auscultation b/l, no wheezing GI: Soft, nontender, nondistended, +BS Skin: Warm and dry. Several small round bite patel on R. forearm with no significant erythema, overlying scab. Ext: trace edema Neuro: CN grossly intact. No focal deficits. Generalized weakness Psych: oriented x 3 LABORATORY DATA: Please see below. ACTIVITY: [As tolerated]. DIET:Carb consistent DISPOSITION: 06 Home Health Service. DISCHARGE INSTRUCTIONS: PMD in 1 week DISCHARGE CONDITION: [Stable]. TIME SPENT ON DISCHARGE: 35 minutes. Vital Signs/I&Os Vital Signs Date Time Temp Pulse Resp B/P (MAP) Pulse Ox O2 Delivery O2 Flow Rate FiO2 02/23/19 09:24 81 138/56 02/23/19 05:48 97.1 20 96 Room Air I&O- Last 24 Hours up to 6 AM 02/23/19 06:00 Intake Total 1440 ml Balance 1440 ml Laboratory Data Labs 24H Laboratory Tests 2 02/22/19 16:37: Bedside Glucose (Misc Panel) 209H 02/22/19 20:25: Bedside Glucose (Misc Panel) 212H 02/23/19 06:55: Immature Granulocyte % (Auto) 0.6, Neutrophils (%) (Auto) 67.6H, Lymphocytes (%) (Auto) 21.2L, Monocytes (%) (Auto) 7.6H, Eosinophils (%) (Auto) 2.7, Basophils (%) (Auto) 0.3, Neutrophils # (Auto) 4.8, Lymphocytes # (Auto) 1.5, Monocytes # (Auto) 0.5, Eosinophils # (Auto) 0.2, Basophils # (Auto) 0.0, Nucleated Red Blood Cells % (auto) 0.0, Anion Gap 5L, Glomerular Filtration Rate 45.1, Calcium Level 8.9 CBC/BMP Laboratory Tests 02/23/19 06:55 FSBS Laboratory Tests Test 02/22/19 16:37 02/22/19 20:25 Range/Units Bedside Glucose (Misc Panel) 209 212 83-110 MG/DL Microbiology Microbiology 02/19/19 Blood Culture - Preliminary, Resulted No Growth after 72 hours. All specime... 02/19/19 Urine Culture - Final, Complete Klebsiella Pneumoniae 02/19/19 Blood Culture - Preliminary, Resulted No Growth after 72 hours. All specime... Discharge Medications Scheduled Amlodipine Besylate (Amlodipine Besylate) 10 Mg Tablet, 10 MG PO DAILY, (Reported) PATIENT HAS NOT BEEN TAKING Amoxicillin/Potassium Clav (Amox-Clav 875-125 mg Tablet) 1 Each Tablet, 875 MG PO BID Atenolol (Atenolol) 50 Mg Tablet, 25 MG PO DAILY, (Reported) PATIENT HAS NOT BEEN TAKING Atorvastatin Calcium (Atorvastatin Calcium) 80 Mg Tablet, 40 MG PO DAILY, (Reported) PATIENT HAS NOT BEEN TAKING Insulin Aspart (Novolog Flexpen) 100 Unit/1 Ml Insuln.pen, 4 UNITS SQ ACHS, (Reported) Insulin Degludec (Tresiba Flextouch U-100) 100 Unit/1 Ml Insuln.pen, 16 UNITS SQ DAILY, (Reported) Lactic Acid (Josephine-Hydrolac) 222 Ml Lotion, 0 DOSE TOP DAILY Omeprazole (Omeprazole) 20 Mg Capsule.dr, 20 MG PO DAILY, (Reported) Vit A/Vit C/Vit E/Zinc/Copper (Preservision Areds Tablet) 1 Each Tablet, 1 TAB PO BID, (Reported) Scheduled PRN Acetaminophen (Tylenol) 325 Mg Tablet, 650 MG PO BID PRN for PAIN, (Reported) Allergies Coded Allergies: terfenadine (Verified Allergy, Unknown, 02/19/19) GEORGINA SAHA MD Feb 23, 2019 12:26
== END 2019-02-23 10:40 | disposition home health service (06) | DRG 948 ==
LOC: M ED 13:50 → M ED INP 19:20 → M MS5PR 22:35
PROVIDERS: ADMIT Internal Medicine; ATTEND Internal Medicine Nephrology
DX: R53.1 Weakness (principal); N17.9 Acute kidney failure, unspecified; E11.65 Type 2 diabetes mellitus with hyperglycemia; E78.5 Hyperlipidemia, unspecified; I10 Essential (primary) hypertension; I69.311 Memory deficit following cerebral infarction; S51.851A Open bite of right forearm, initial encounter; W55.01XA Bitten by cat, initial encounter; Y92.009 Unspecified place in unspecified non-institutional (private) residence as the place of occurrence of the external cause; I69.320 Aphasia following cerebral infarction; D53.9 Nutritional anemia, unspecified; E66.9 Obesity, unspecified; E11.628 Type 2 diabetes mellitus with other skin complications; E11.51 Type 2 diabetes mellitus with diabetic peripheral angiopathy without gangrene; X31.XXXA Exposure to excessive natural cold, initial encounter; S90.821A Blister (nonthermal), right foot, initial encounter; Z68.30 Body mass index [BMI] 30.0-30.9, adult; Z79.4 Long term (current) use of insulin; Z79.899 Other long term (current) drug therapy; Z88.8 Allergy status to other drugs, medicaments and biological substances; Z98.62 Peripheral vascular angioplasty status; Z98.41 Cataract extraction status, right eye; Z90.49 Acquired absence of other specified parts of digestive tract

== ENCOUNTER → 2020-09-06 | Outpatient (REF) | payer MEDICARE, MEDICAID ==
[~2020-09-06] MED LIST: ACET-907 PO; AMLO1TAB25 PO; AMOX875T2 PO; ATEN50TA2 PO; ATOR80TA59 PO; LACH12LO TOP; NOVOINJ3 SQ; OCUVTAB4 PO; OMEP1CAP73 PO; TRES1INJ2 SQ
[2020-09-06 09:51] LABS: HEMATOCRIT 33.4 % (36.0-47.0); HEMOGLOBIN 10.7 g/dl (12.0-15.5); MEAN CORPUSCULAR HEMOGLOBIN 28.8 pg (27.0-33.0); PLATELET COUNT, AUTOMATED 219 10^3/uL (150-450); RED BLOOD COUNT 3.71 10^6/uL (4.00-5.40)
[2020-09-06 10:25] LABS: ALBUMIN 2.9 GM/DL (3.2-5.2); BILIRUBIN,TOTAL 0.3 MG/DL (0.2-1.0); CALCIUM LEVEL 9.2 MG/DL (8.8-10.2); CHOLESTEROL RISK RATIO 4.437 (<5); CREATININE FOR GFR 1.24 MG/DL (0.55-1.30); GLOMERULAR FILTRATION RATE 44.1 (>32); POTASSIUM SERUM 3.9 MEQ/L (3.5-5.1); TOTAL PROTEIN 6.1 GM/DL (6.4-8.2)
[2020-09-06 11:31] LABS: HEMOGLOBIN A1c 6.9 %
== END ==
LOC: SKLAB4 08:23
PROVIDERS: ATTEND Internal Medicine
DX: E11.9 Type 2 diabetes mellitus without complications (principal); E78.5 Hyperlipidemia, unspecified; I10 Essential (primary) hypertension

== ENCOUNTER → 2020-11-27 | Outpatient (REF) | payer MEDICARE, MEDICAID ==
[2020-11-27 09:17] LABS: HEMATOCRIT 34.7 % (36.0-47.0); HEMOGLOBIN 11.4 g/dl (12.0-15.5); MEAN CORPUSCULAR HEMOGLOBIN 29.3 pg (27.0-33.0); MEAN CORPUSCULAR HGB CONC 32.9 g/dl (32.0-36.5); MEAN CORPUSCULAR VOLUME 89.2 fl (80.0-96.0); PLATELET COUNT, AUTOMATED 181 10^3/uL (150-450); RED BLOOD COUNT 3.89 10^6/uL (4.00-5.40); WHITE BLOOD COUNT 6.7 10^3/uL (4.0-10.0)
[2020-11-27 09:45] LABS: CALCIUM LEVEL 8.9 MG/DL (8.8-10.2); CREATININE FOR GFR 1.04 MG/DL (0.55-1.30); POTASSIUM SERUM 3.5 MEQ/L (3.5-5.1)
== END ==
LOC: SKLAB4 11-26 10:37
PROVIDERS: ATTEND Internal Medicine
DX: R11.2 Nausea with vomiting, unspecified (principal)

== ENCOUNTER → 2020-12-09 | Outpatient (REF) | payer MEDICARE, MEDICAID ==
[2020-12-09 14:12] LABS: HEMATOCRIT 42.8 % (36.0-47.0); HEMOGLOBIN 13.8 g/dl (12.0-15.5); MEAN CORPUSCULAR HEMOGLOBIN 28.9 pg (27.0-33.0); MEAN CORPUSCULAR HGB CONC 32.2 g/dl (32.0-36.5); MEAN CORPUSCULAR VOLUME 89.7 fl (80.0-96.0); PLATELET COUNT, AUTOMATED 259 10^3/uL (150-450); RED BLOOD COUNT 4.77 10^6/uL (4.00-5.40); WHITE BLOOD COUNT 10.5 10^3/uL (4.0-10.0)
[2020-12-09 14:35] LABS: CREATININE FOR GFR 1.31 MG/DL (0.55-1.30); GLOMERULAR FILTRATION RATE 41.4 (>32); POTASSIUM SERUM 3.9 MEQ/L (3.5-5.1)
== END ==
LOC: SKLAB4 12:16
PROVIDERS: ATTEND Internal Medicine
DX: R19.7 Diarrhea, unspecified (principal); R11.10 Vomiting, unspecified

== ENCOUNTER → 2020-12-09 | Outpatient (REF) | payer MEDICARE, MEDICAID | LOC: SKLAB4 09:34 | PROVIDERS: ATTEND Internal Medicine | DX: R11.2 Nausea with vomiting, unspecified (principal); Z53.8 Procedure and treatment not carried out for other reasons ==

== ENCOUNTER → 2020-12-22 | Outpatient (REF) | payer MEDICARE, MEDICAID | LOC: SKLAB4 08:07 | PROVIDERS: ATTEND Internal Medicine | DX: Z20.822 Contact with and (suspected) exposure to COVID-19 (principal) ==

== ENCOUNTER → 2020-12-25 | Outpatient (REF) | payer MEDICARE, MEDICAID | LOC: SKLAB4 12:05 | PROVIDERS: ATTEND Internal Medicine | DX: Z20.822 Contact with and (suspected) exposure to COVID-19 (principal) ==

== ENCOUNTER → 2020-12-27 | Outpatient (REF) | payer MEDICARE, MEDICAID | LOC: SKLAB4 08:38 | PROVIDERS: ATTEND Internal Medicine | DX: Z20.822 Contact with and (suspected) exposure to COVID-19 (principal) ==

== ENCOUNTER → 2020-12-31 | Outpatient (REF) | payer MEDICARE, MEDICAID | LOC: SKLAB4 11:51 | PROVIDERS: ATTEND Internal Medicine | DX: Z20.822 Contact with and (suspected) exposure to COVID-19 (principal) ==

== ENCOUNTER → 2021-01-02 | Outpatient (REF) | payer MEDICARE, MEDICAID ==
[2021-01-02 05:20] LABS: CLOSTRIDIUM DIFFICILE PCR NEGATIVE (NEGATIVE)
== END ==
LOC: SKLAB4 12:25
PROVIDERS: ATTEND Internal Medicine
DX: R19.5 Other fecal abnormalities (principal)

== ENCOUNTER → 2021-01-03 | Outpatient (REF) | payer MEDICARE, MEDICAID | LOC: SKLAB4 06:42 | PROVIDERS: ATTEND Internal Medicine | DX: Z20.822 Contact with and (suspected) exposure to COVID-19 (principal) ==

== ENCOUNTER → 2021-01-07 | Outpatient (REF) | payer MEDICARE, MEDICAID | LOC: SKLAB4 06:09 | PROVIDERS: ATTEND Internal Medicine | DX: Z20.822 Contact with and (suspected) exposure to COVID-19 (principal) ==

== ENCOUNTER → 2021-01-10 | Outpatient (REF) | payer MEDICARE, MEDICAID | LOC: SKLAB4 11:01 | PROVIDERS: ATTEND Internal Medicine | DX: Z20.822 Contact with and (suspected) exposure to COVID-19 (principal) ==

== ENCOUNTER → 2021-01-16 | Outpatient (REF) | payer MEDICARE, MEDICAID | LOC: SKLAB4 13:23 | PROVIDERS: ATTEND Internal Medicine | DX: Z20.822 Contact with and (suspected) exposure to COVID-19 (principal) ==

== ENCOUNTER → 2021-01-16 | Outpatient (REF) | payer MEDICARE, MEDICAID ==
[2021-01-16 12:26] LABS: CALCIUM LEVEL 9.3 MG/DL (8.8-10.2); PHOSPHORUS LEVEL 3.7 MG/DL (2.5-4.9)
[2021-01-16 12:41] LABS: PTH INTACT 51.5 PG/ML (18.5-88.0); TOTAL 25(OH) VITAMIN D 17.8 NG/ML (30.0-100.0)
== END ==
LOC: SKLAB4 11:04
PROVIDERS: ATTEND Internal Medicine
DX: Z13.29 Encounter for screening for other suspected endocrine disorder (principal); Z20.822 Contact with and (suspected) exposure to COVID-19; Z79.899 Other long term (current) drug therapy
CPT/HCPCS: 36415; 82306; 82310; 83970; 84100; U0002

== ENCOUNTER → 2021-01-18 | Outpatient (REF) | payer MEDICARE, MEDICAID ==
[2021-01-18 16:35] LABS: HEMATOCRIT 35.6 % (36.0-47.0); HEMOGLOBIN 11.5 g/dl (12.0-15.5); MEAN CORPUSCULAR HGB CONC 32.3 g/dl (32.0-36.5); MEAN CORPUSCULAR VOLUME 89.9 fl (80.0-96.0); PLATELET COUNT, AUTOMATED 177 10^3/uL (150-450); RED BLOOD COUNT 3.96 10^6/uL (4.00-5.40); WHITE BLOOD COUNT 7.3 10^3/uL (4.0-10.0)
[2021-01-18 16:57] LABS: CALCIUM LEVEL 8.7 MG/DL (8.8-10.2); CREATININE FOR GFR 0.97 MG/DL (0.55-1.30); GLOMERULAR FILTRATION RATE 58.5 (>32); POTASSIUM SERUM 3.4 MEQ/L (3.5-5.1)
== END ==
LOC: SKLAB4 13:33
PROVIDERS: ATTEND Internal Medicine
DX: R11.2 Nausea with vomiting, unspecified (principal)

== ENCOUNTER → 2021-01-23 | Outpatient (REF) | payer MEDICARE, MEDICAID | LOC: SKLAB4 07:43 | PROVIDERS: ATTEND Internal Medicine | DX: Z20.822 Contact with and (suspected) exposure to COVID-19 (principal) ==

== ENCOUNTER → 2021-02-13 | Outpatient (REF) | payer MEDICARE, MEDICAID | LOC: SKLAB4 07:00 | PROVIDERS: ATTEND Internal Medicine | DX: Z20.822 Contact with and (suspected) exposure to COVID-19 (principal) ==

== ENCOUNTER → 2021-02-20 | Outpatient (REF) | payer MEDICARE, MEDICAID | LOC: SKLAB4 07:00 | PROVIDERS: ATTEND Internal Medicine | DX: Z20.822 Contact with and (suspected) exposure to COVID-19 (principal) ==

== ENCOUNTER → 2021-02-27 | Outpatient (REF) | payer MEDICARE, MEDICAID | LOC: SKLAB4 07:00 | PROVIDERS: ATTEND Internal Medicine | DX: Z20.822 Contact with and (suspected) exposure to COVID-19 (principal) ==

== ENCOUNTER → 2021-03-06 | Outpatient (REF) | payer MEDICARE, MEDICAID | LOC: SKLAB4 09:53 | PROVIDERS: ATTEND Internal Medicine | DX: Z20.822 Contact with and (suspected) exposure to COVID-19 (principal) ==

== ENCOUNTER → 2021-03-13 | Outpatient (REF) | payer MEDICARE, MEDICAID | LOC: SKLAB4 10:21 | PROVIDERS: ATTEND Internal Medicine | DX: Z20.822 Contact with and (suspected) exposure to COVID-19 (principal) ==

== ENCOUNTER → 2021-06-25 | Outpatient (REF) | payer MEDICARE, MEDICAID ==
[2021-06-25 12:31] LABS: ALBUMIN 2.9 GM/DL (3.2-5.2); BILIRUBIN,TOTAL 0.2 MG/DL (0.2-1.0); CALCIUM LEVEL 9.2 MG/DL (8.8-10.2); CREATININE FOR GFR 1.02 MG/DL (0.55-1.30); GLOMERULAR FILTRATION RATE 55.1 (>32); TOTAL PROTEIN 6.1 GM/DL (6.4-8.2)
== END ==
LOC: SKLAB4 11:19
PROVIDERS: ATTEND Internal Medicine
DX: E11.9 Type 2 diabetes mellitus without complications (principal)

== ENCOUNTER → 2021-07-25 | Outpatient (REF) | payer MEDICARE, MEDICAID ==
[2021-07-25 11:18] LABS: HEMATOCRIT 31.8 % (36.0-47.0); HEMOGLOBIN 9.9 g/dl (12.0-15.5); MEAN CORPUSCULAR HEMOGLOBIN 27.7 pg (27.0-33.0); MEAN CORPUSCULAR HGB CONC 31.1 g/dl (32.0-36.5); MEAN CORPUSCULAR VOLUME 89.1 fl (80.0-96.0); PLATELET COUNT, AUTOMATED 171 10^3/uL (150-450); RED BLOOD COUNT 3.57 10^6/uL (4.00-5.40); WHITE BLOOD COUNT 6.1 10^3/uL (4.0-10.0)
[2021-07-25 12:07] LABS: CALCIUM LEVEL 9.3 MG/DL (8.8-10.2); CREATININE FOR GFR 1.12 MG/DL (0.55-1.30); GLOMERULAR FILTRATION RATE 49.5 (>32); POTASSIUM SERUM 4.5 MEQ/L (3.5-5.1)
== END ==
LOC: SKLAB4 14:11
PROVIDERS: ATTEND Internal Medicine
DX: E11.22 Type 2 diabetes mellitus with diabetic chronic kidney disease (principal); I50.9 Heart failure, unspecified

== ENCOUNTER → 2021-09-26 | Outpatient (REF) | payer MEDICARE, MEDICAID ==
[2021-09-26 10:03] LABS: CHOLESTEROL RISK RATIO 5.121 (<5)
[2021-09-26 10:05] LABS: HEMOGLOBIN A1c 7.3 %
== END ==
LOC: SKLAB4 06:00
PROVIDERS: ATTEND Internal Medicine
DX: E78.5 Hyperlipidemia, unspecified (principal); E11.9 Type 2 diabetes mellitus without complications

== ENCOUNTER → 2021-12-26 | Outpatient (REF) | payer MEDICARE, MEDICAID ==
[2021-12-26 13:37] LABS: ALBUMIN 2.8 GM/DL (3.2-5.2); BILIRUBIN,TOTAL 0.2 MG/DL (0.2-1.0); CALCIUM LEVEL 8.5 MG/DL (8.8-10.2); GLOMERULAR FILTRATION RATE 56.4 (>32); POTASSIUM SERUM 3.1 MEQ/L (3.5-5.1); TOTAL PROTEIN 6.1 GM/DL (6.4-8.2)
== END ==
LOC: SKLAB4 12:19
PROVIDERS: ATTEND Nurse Practitioner Adult Health
DX: E11.9 Type 2 diabetes mellitus without complications (principal)

== ENCOUNTER → 2021-12-27 | Outpatient (REF) | payer MEDICARE, MEDICAID | LOC: SKLAB4 16:00 | PROVIDERS: ATTEND Nurse Practitioner Adult Health | DX: E87.6 Hypokalemia (principal) ==

== ENCOUNTER → 2022-01-22 | Outpatient (REF) | payer MEDICARE, MEDICAID ==
[2022-01-22 08:00] LABS: HEMATOCRIT 31.3 % (36.0-47.0); HEMOGLOBIN 9.9 g/dl (12.0-15.5); MEAN CORPUSCULAR HEMOGLOBIN 29.3 pg (27.0-33.0); MEAN CORPUSCULAR HGB CONC 31.6 g/dl (32.0-36.5); MEAN CORPUSCULAR VOLUME 92.6 fl (80.0-96.0); PLATELET COUNT, AUTOMATED 159 10^3/uL (150-450); RED BLOOD COUNT 3.38 10^6/uL (4.00-5.40); WHITE BLOOD COUNT 4.5 10^3/uL (4.0-10.0)
== END ==
LOC: SKLAB4 08:37
PROVIDERS: ATTEND Nurse Practitioner Adult Health
DX: E11.9 Type 2 diabetes mellitus without complications (principal)

== ENCOUNTER → 2022-03-26 | Outpatient (REF) | payer MEDICARE, MEDICAID ==
[2022-03-26 08:01] LABS: HEMOGLOBIN A1c 7.2 % (4.0-6.0)
== END ==
LOC: SKLAB4 12:27
PROVIDERS: ATTEND Internal Medicine
DX: E11.9 Type 2 diabetes mellitus without complications (principal)

== ENCOUNTER → 2022-04-04 | Outpatient (REF) | payer MEDICARE, MEDICAID ==
[2022-04-04 14:56] LABS: HEMATOCRIT 31.5 % (36.0-47.0); HEMOGLOBIN 10.3 g/dl (12.0-15.5); MEAN CORPUSCULAR HGB CONC 32.7 g/dl (32.0-36.5); MEAN CORPUSCULAR VOLUME 91.8 fl (80.0-96.0); PLATELET COUNT, AUTOMATED 176 10^3/uL (150-450); RED BLOOD COUNT 3.43 10^6/uL (4.00-5.40); WHITE BLOOD COUNT 5.2 10^3/uL (4.0-10.0)
[2022-04-04 15:25] LABS: CALCIUM LEVEL 8.7 MG/DL (8.3-10.6); CREATININE FOR GFR 1.07 MG/DL (0.55-1.30); GLOMERULAR FILTRATION RATE 52.1 (>32); POTASSIUM SERUM 3.4 MMOL/L (3.5-5.1)
== END ==
LOC: SKLAB3 13:45
PROVIDERS: ATTEND Nurse Practitioner Adult Health
DX: D64.9 Anemia, unspecified (principal)

== ENCOUNTER → 2022-04-28 | Outpatient (REF) | payer MEDICARE, MEDICAID | LOC: SKLAB4 11:47 | PROVIDERS: ATTEND Nurse Practitioner Adult Health | DX: R05.9 Cough, unspecified (principal); J06.9 Acute upper respiratory infection, unspecified ==

== ENCOUNTER → 2022-04-28 | Outpatient (REF) | payer MEDICARE, MEDICAID | LOC: SKLAB4 14:55 | PROVIDERS: ATTEND Nurse Practitioner Adult Health | DX: R05.9 Cough, unspecified (principal) ==

== ENCOUNTER → 2022-06-18 | Outpatient (REF) | payer MEDICARE, MEDICAID ==
[2022-06-18 12:08] LABS: HEMATOCRIT 30.8 % (36.0-47.0); HEMOGLOBIN 9.9 g/dl (12.0-15.5); MEAN CORPUSCULAR HEMOGLOBIN 29.2 pg (27.0-33.0); MEAN CORPUSCULAR HGB CONC 32.1 g/dl (32.0-36.5); MEAN CORPUSCULAR VOLUME 90.9 fl (80.0-96.0); PLATELET COUNT, AUTOMATED 205 10^3/uL (150-450); RED BLOOD COUNT 3.39 10^6/uL (4.00-5.40); WHITE BLOOD COUNT 6.7 10^3/uL (4.0-10.0)
[2022-06-18 12:24] LABS: CALCIUM LEVEL 8.5 MG/DL (8.3-10.6); CREATININE FOR GFR 1.05 MG/DL (0.55-1.30); GLOMERULAR FILTRATION RATE 53.2 (>32); POTASSIUM SERUM 3.4 MMOL/L (3.5-5.1)
== END ==
LOC: SKLAB4 11:04
PROVIDERS: ATTEND Nurse Practitioner Adult Health
DX: J06.9 Acute upper respiratory infection, unspecified (principal); J98.4 Other disorders of lung

== ENCOUNTER → 2022-06-25 | Outpatient (REF) | payer MEDICARE, MEDICAID ==
[2022-06-25 09:00] LABS: ALBUMIN 2.8 G/DL (3.2-5.2); ALKALINE PHOSPHATASE 116 U/L (46-116); ALT/SGPT < 9 U/L (7.0-40); AST/SGOT 12 U/L (<34); BILIRUBIN,TOTAL 0.2 MG/DL (0.3-1.2); BLOOD UREA NITROGEN 11 MG/DL (9-23); CALCIUM LEVEL 8.7 MG/DL (8.3-10.6); CARBON DIOXIDE LEVEL 24 MMOL/L (20-31); CHLORIDE LEVEL 108 MMOL/L (98-107); CREATININE FOR GFR 0.92 MG/DL (0.55-1.30); GLOMERULAR FILTRATION RATE > 60.0 (>32); GLUCOSE, FASTING 134 MG/DL (74-106); PHOSPHORUS LEVEL 3.1 MG/DL (2.4-5.1); POTASSIUM SERUM 3.4 MMOL/L (3.5-5.1); SODIUM LEVEL 142 MMOL/L (136-145); TOTAL PROTEIN 6.1 G/DL (5.7-8.2)
[2022-06-25 09:02] LABS: TOTAL 25(OH) VITAMIN D 47.2 NG/ML (20.0-100.0)
[2022-06-25 11:24] LABS: PTH INTACT 63.8 PG/ML (18.5-88.0)
== END ==
LOC: SKLAB4 09:07
PROVIDERS: ATTEND Nurse Practitioner Adult Health
DX: E11.9 Type 2 diabetes mellitus without complications (principal); E87.6 Hypokalemia; Z13.29 Encounter for screening for other suspected endocrine disorder; Z79.899 Other long term (current) drug therapy

== ENCOUNTER → 2022-07-23 | Outpatient (REF) | payer MEDICARE, MEDICAID ==
[2022-07-23 07:33] LABS: HEMATOCRIT 32.7 % (36.0-47.0); HEMOGLOBIN 10.6 g/dl (12.0-15.5); MEAN CORPUSCULAR HGB CONC 32.4 g/dl (32.0-36.5); MEAN CORPUSCULAR VOLUME 89.6 fl (80.0-96.0); PLATELET COUNT, AUTOMATED 182 10^3/uL (150-450); RED BLOOD COUNT 3.65 10^6/uL (4.00-5.40); WHITE BLOOD COUNT 7.8 10^3/uL (4.0-10.0)
== END ==
LOC: SKLAB4 09:04
PROVIDERS: ATTEND Nurse Practitioner Adult Health
DX: E11.9 Type 2 diabetes mellitus without complications (principal)

== ENCOUNTER → 2022-07-24 | Outpatient (REF) | payer MEDICARE, MEDICAID ==
[2022-07-24 10:37] LABS: HEMATOCRIT 33.7 % (36.0-47.0); MEAN CORPUSCULAR HEMOGLOBIN 28.9 pg (27.0-33.0); MEAN CORPUSCULAR HGB CONC 32.6 g/dl (32.0-36.5); MEAN CORPUSCULAR VOLUME 88.7 fl (80.0-96.0); PLATELET COUNT, AUTOMATED 191 10^3/uL (150-450)
[2022-07-24 10:55] LABS: CALCIUM LEVEL 8.6 MG/DL (8.3-10.6); CREATININE FOR GFR 0.95 MG/DL (0.55-1.30); GLOMERULAR FILTRATION RATE 59.7 (>32); POTASSIUM SERUM 4.1 MMOL/L (3.5-5.1)
== END ==
LOC: SKLAB4 09:25
PROVIDERS: ATTEND Nurse Practitioner Adult Health
DX: R50.9 Fever, unspecified (principal)

== ENCOUNTER → 2022-12-24 | Outpatient (REF) | payer MEDICARE, MEDICAID ==
[2022-12-24 09:56] LABS: ALBUMIN 2.9 G/DL (3.2-5.2); ALKALINE PHOSPHATASE 118 U/L (46-116); ALT/SGPT < 9 U/L (7.0-40); AST/SGOT 15 U/L (<34); BILIRUBIN,TOTAL 0.3 MG/DL (0.3-1.2); BLOOD UREA NITROGEN 15 MG/DL (9-23); CALCIUM LEVEL 8.7 MG/DL (8.3-10.6); CARBON DIOXIDE LEVEL 25 MMOL/L (20-31); CHLORIDE LEVEL 107 MMOL/L (98-107); CREATININE FOR GFR 0.86 MG/DL (0.55-1.30); GLOMERULAR FILTRATION RATE > 60.0 (>32); GLUCOSE, FASTING 106 MG/DL (74-106); POTASSIUM SERUM 3.5 MMOL/L (3.5-5.1); SODIUM LEVEL 141 MMOL/L (136-145); TOTAL PROTEIN 5.9 G/DL (5.7-8.2)
== END ==
LOC: SKLAB4 07:00
PROVIDERS: ATTEND Nurse Practitioner Adult Health
DX: E11.9 Type 2 diabetes mellitus without complications (principal)

== ENCOUNTER → 2023-01-21 | Outpatient (REF) | payer MEDICARE, MEDICAID ==
[2023-01-21 07:47] LABS: HEMATOCRIT 33.6 % (36.0-47.0); HEMOGLOBIN 10.7 g/dl (12.0-15.5); MEAN CORPUSCULAR HEMOGLOBIN 29.5 pg (27.0-33.0); MEAN CORPUSCULAR HGB CONC 31.8 g/dl (32.0-36.5); MEAN CORPUSCULAR VOLUME 92.6 fl (80.0-96.0); PLATELET COUNT, AUTOMATED 153 10^3/uL (150-450); RED BLOOD COUNT 3.63 10^6/uL (4.00-5.40); WHITE BLOOD COUNT 4.8 10^3/uL (4.0-10.0)
== END ==
LOC: SKLAB4 09:55
PROVIDERS: ATTEND Nurse Practitioner Adult Health
DX: E11.9 Type 2 diabetes mellitus without complications (principal)

== ENCOUNTER → 2023-03-25 | Outpatient (REF) | payer MEDICARE, MEDICAID ==
[2023-03-25 09:12] LABS: HEMOGLOBIN A1c 5.9 % (4.0-6.0)
== END ==
LOC: SKLAB4 10:40
PROVIDERS: ATTEND Nurse Practitioner Adult Health
DX: E11.9 Type 2 diabetes mellitus without complications (principal)

== ENCOUNTER → 2023-06-24 | Outpatient (REF) | payer MEDICARE, MEDICAID ==
[2023-06-24 13:10] LABS: ALBUMIN 3.1 G/DL (3.2-5.2); ALKALINE PHOSPHATASE 129 U/L (46-116); ALT/SGPT 16 U/L (7.0-40); AST/SGOT 36 U/L (<34); BILIRUBIN,TOTAL 0.2 MG/DL (0.3-1.2); BLOOD UREA NITROGEN 17 MG/DL (9-23); CARBON DIOXIDE LEVEL 26 MMOL/L (20-31); CHLORIDE LEVEL 106 MMOL/L (98-107); CREATININE FOR GFR 0.82 MG/DL (0.55-1.30); GLOMERULAR FILTRATION RATE > 60.0 (>32); GLUCOSE, FASTING 178 MG/DL (74-106); SODIUM LEVEL 139 MMOL/L (136-145); TOTAL PROTEIN 6.1 G/DL (5.7-8.2)
== END ==
LOC: SKLAB4 07:00
PROVIDERS: ATTEND Nurse Practitioner Adult Health
DX: E11.9 Type 2 diabetes mellitus without complications (principal)

== ENCOUNTER → 2023-07-27 | Outpatient (REF) | payer MEDICARE, MEDICAID ==
[2023-07-27 09:26] LABS: BLOOD UREA NITROGEN 19 MG/DL (9-23); CALCIUM LEVEL 8.7 MG/DL (8.3-10.6); CARBON DIOXIDE LEVEL 23 MMOL/L (20-31); CHLORIDE LEVEL 111 MMOL/L (98-107); CREATININE FOR GFR 0.85 MG/DL (0.55-1.30); GLOMERULAR FILTRATION RATE > 60.0 (>32); GLUCOSE, FASTING 125 MG/DL (74-106); SODIUM LEVEL 142 MMOL/L (136-145)
== END ==
LOC: SKLAB4 07:00
PROVIDERS: ATTEND Nurse Practitioner Adult Health
DX: E11.9 Type 2 diabetes mellitus without complications (principal)

== ENCOUNTER → 2023-08-27 | Outpatient (REF) | payer MEDICARE, MEDICAID ==
[2023-08-27 06:58] LABS: HEMATOCRIT 32.5 % (36.0-47.0); HEMOGLOBIN 10.8 g/dl (12.0-15.5); MEAN CORPUSCULAR HEMOGLOBIN 30.9 pg (27.0-33.0); MEAN CORPUSCULAR HGB CONC 33.2 g/dl (32.0-36.5); MEAN CORPUSCULAR VOLUME 92.9 fl (80.0-96.0); PLATELET COUNT, AUTOMATED 126 10^3/uL (150-450); WHITE BLOOD COUNT 4.9 10^3/uL (4.0-10.0)
[2023-08-27 07:34] LABS: CHOLESTEROL RISK RATIO 7.7 (<5); HDL CHOLESTEROL 29.6 MG/DL (>40); LDL CHOLESTEROL 151.4 MG/DL (<100); NON-HDL-C 198.4 MG/DL
== END ==
LOC: SKLAB4 08:43
PROVIDERS: ATTEND Internal Medicine
DX: E11.9 Type 2 diabetes mellitus without complications (principal); E78.5 Hyperlipidemia, unspecified

== ENCOUNTER → 2024-01-26 | Outpatient (REF) | payer MEDICARE, MEDICAID ==
[2024-01-26 13:02] LABS: HEMOGLOBIN A1c 8.5 % (4.0-6.0)
[2024-01-26 13:12] LABS: ALBUMIN 2.6 G/DL (3.2-5.2); ALKALINE PHOSPHATASE 104 U/L (35-104); ALT/SGPT < 9 U/L (7.0-40); AST/SGOT 8 U/L (<34); BILIRUBIN,TOTAL 0.3 MG/DL (0.3-1.2); BLOOD UREA NITROGEN 17 MG/DL (9-23); CALCIUM LEVEL 8.8 MG/DL (8.3-10.6); CARBON DIOXIDE LEVEL 25 MMOL/L (20-31); CHLORIDE LEVEL 109 MMOL/L (98-107); CREATININE FOR GFR 0.82 MG/DL (0.55-1.30); GLOMERULAR FILTRATION RATE > 60.0 (>32); GLUCOSE, FASTING 276 MG/DL (74-106); POTASSIUM SERUM 3.5 MMOL/L (3.5-5.1); SODIUM LEVEL 141 MMOL/L (136-145); TOTAL PROTEIN 6.2 G/DL (5.7-8.2)
== END ==
LOC: SKLAB4 07:00
PROVIDERS: ATTEND Internal Medicine
DX: E11.9 Type 2 diabetes mellitus without complications (principal)

== ENCOUNTER → 2024-03-01 | Outpatient (REF) | payer MEDICARE, MEDICAID ==
[2024-03-01 08:53] LABS: HEMATOCRIT 32.9 % (36.0-47.0); HEMOGLOBIN 10.7 g/dl (12.0-15.5); MEAN CORPUSCULAR HEMOGLOBIN 29.2 pg (27.0-33.0); MEAN CORPUSCULAR HGB CONC 32.5 g/dl (32.0-36.5); MEAN CORPUSCULAR VOLUME 89.6 fl (80.0-96.0); PLATELET COUNT, AUTOMATED 125 10^3/uL (150-450); RED BLOOD COUNT 3.67 10^6/uL (4.00-5.40); WHITE BLOOD COUNT 3.4 10^3/uL (4.0-10.0)
== END ==
LOC: SKLAB4 07:00
PROVIDERS: ATTEND Internal Medicine
DX: E11.9 Type 2 diabetes mellitus without complications (principal)

== ENCOUNTER → 2024-09-01 | Outpatient (REF) | payer MEDICARE, MEDICAID ==
[2024-09-01 08:09] LABS: HEMATOCRIT 31.8 % (36.0-47.0); HEMOGLOBIN 10.2 g/dl (12.0-15.5); MEAN CORPUSCULAR HEMOGLOBIN 28.9 pg (27.0-33.0); MEAN CORPUSCULAR HGB CONC 32.1 g/dl (32.0-36.5); MEAN CORPUSCULAR VOLUME 90.1 fl (80.0-96.0); PLATELET COUNT, AUTOMATED 134 10^3/uL (150-450); RED BLOOD COUNT 3.53 10^6/uL (4.00-5.40); WHITE BLOOD COUNT 3.3 10^3/uL (4.0-10.0)
== END ==
LOC: SKLAB4 07:00
PROVIDERS: ATTEND Internal Medicine
DX: E11.9 Type 2 diabetes mellitus without complications (principal)

== ENCOUNTER → 2024-09-29 | Outpatient (REF) | payer MEDICARE, MEDICAID ==
[2024-09-29 10:58] LABS: CHOLESTEROL LEVEL 195.0 MG/DL (<200); CHOLESTEROL RISK RATIO 7.16 (<5); LDL CHOLESTEROL 120.0 MG/DL (<100); NON-HDL-C 167.8 MG/DL; TRIGLYCERIDES LEVEL 239.0 MG/DL (<150)
== END ==
LOC: SKLAB4 07:00
PROVIDERS: ATTEND Internal Medicine
DX: E78.5 Hyperlipidemia, unspecified (principal)

== ENCOUNTER → 2025-01-26 | Outpatient (REF) | payer MEDICARE, MEDICAID ==
[2025-01-26 09:38] LABS: ALT/SGPT < 9 U/L (7.0-40); AST/SGOT 15 U/L (<34); CALCIUM LEVEL 8.0 MG/DL (8.3-10.6); CARBON DIOXIDE LEVEL 25 MMOL/L (20-31); CHLORIDE LEVEL 107 MMOL/L (98-107); CREATININE FOR GFR 0.79 MG/DL (0.55-1.30); GLOMERULAR FILTRATION RATE 72.8 (>32); POTASSIUM SERUM 3.6 MMOL/L (3.5-5.1); SODIUM LEVEL 143 MMOL/L (136-145)
[2025-01-26 09:47] LABS: ESTIMATED AVERAGE GLUCOSE 206.0 MG/DL (60-110)
== END ==
LOC: SKLAB4 07:00
PROVIDERS: ATTEND Family Medicine
DX: E11.9 Type 2 diabetes mellitus without complications (principal)